=== PATIENT | male | born 1940 | race Caucasian/White ===

== ENCOUNTER → 2025-02-23 09:44 | Outpatient (REF) | payer MEDICARE, OTHER, SELFPAY | LOC: RCS 09:44 | PROVIDERS: ATTENDING PHYSICIAN Nurse Practitioner; FAMILY PHYSICIAN Family Medicine | DX: I35.0 Nonrheumatic aortic (valve) stenosis (principal); I48.21 Permanent atrial fibrillation; E78.00 Pure hypercholesterolemia, unspecified; I45.10 Unspecified right bundle-branch block; R07.89 Other chest pain | CPT/HCPCS: 93306 ==

== ENCOUNTER 2025-03-05 07:47 | Day surgery (SDC) | payer MEDICARE, OTHER, SELFPAY ==
[2025-03-05] VITALS (18 sets, daily range): BP systolic 110–160; BP diastolic 70–95; BMI 29.5
[2025-03-05] MEDS: NSS 288 ML IV (08:45)
--- NOTE | 2025-03-05 10:39 | ITS.CL.CATH ---
Addendum entered and electronically signed by Michael Neri DO 03/05/25 17:53:
Resident Physicians Duglas Anderson M.D. and Sari Lugo M.D. were present and assisted during the procedure. I was present for and performed all of the critical portions of the procedure.
Original Note:
Copying Machine Repairer - Catheterization
Cardiac Catheterization
Procedure Report:
CARDIAC CATHETERIZATION REPORT
Date of Procedure: 03/05/2025
Referring: Kevin Ritter M.D., Ph.D.
Indication: Chest pressure, at least moderate aortic valve stenosis.
PROCEDURE:
1. Right heart catheterization.
2. Coronary angiography.
3. Left heart catheterization.
4. Aortic valve interrogation.
A total of 28 minutes of procedural/moderate sedation was utilized. An independent medical videographer was present to assist with and help manage the patient's level of consciousness and physiologic status.
ACCESS:
1. 6 [place] right radial artery using a modified Seldinger technique.
2. 5 [place]e right antecubital vein using a previously placed IV.
CATHETERS:
1. 5 [place] balloon wedge.
2. 5 [place] JL 3.5.
3. 5 [place] JR4.
4. 6 [place] dual-lumen David pigtail catheter.
HEMODYNAMIC DATA
Weight (kg): 95.7
AO (s/d/x, mmHg): 128/78/98
LV (s/x, mmHg): 153/20
PCWP (a/v/x, mmHg): 21/34/20
PA (s/d/x, mmHg): 47/21/30
RV (s/x, mmHg): 47/10
RA (a/v/x, mmHg): 06/02/
SVC SvO2 (%): 71.0
IVC SvO2 (%): Not obtained.
RA SvO2 (%): Not obtained.
RV SvO2 (%): Not obtained.
PA SvO2 (%): 73.2
SaO2 (%): 96.4
Hbg (g/dL): 14.6
KAYCEE
CO (L/min): 5.85
CI (L/min/m2): 2.71
Thermodilution
CO (L/min): Not performed.
CI (L/min/m2): Not performed.
TPG (mmHg): 10
PVR (Bragg Units): 1.71
SVR (dynes*seconds*cm^-5): 1203
AVO2 Diff (Volume %): 4.61
AV gradient (x, mmHg): 31.4
AV area (cm2): 1.06
MV gradient (x, mmHg): Not obtained.
MV area (cm2): Not obtained.
LEFT VENTRICULOGRAPHY: Not performed.
AORTOGRAPHY: Not performed.
CORONARY ANGIOGRAPHY
Dominance: Right.
Left Main: Normal size, trifurcating vessel. There is no coronary disease.
LAD: Large size vessel giving rise to several small diagonals before wrapping around the apex. There are minor luminal irregularities in the mid vessel.
Ramus: Medium size vessel supplying the majority of the lateral wall. There is no coronary artery disease.
Circumflex: Normal size, nondominant vessel giving rise to 1 obtuse marginal before terminating as a left posterolateral branch. There is no coronary artery disease.
RCA: Normal size, dominant vessel. There is no coronary artery disease.
INTERVENTIONS
None.
Closure Device: Vascular band for the right radial artery, manual pressure for the right antecubital vein.
Radiation dose (mGy): 555.11
DAP (cm2.Gy): 41.8753
Fluoroscopy time (minutes): 11.5
CONCLUSIONS:
1. Right dominant circulation with luminal irregularities in the mid LAD.
2. Moderately elevated filling pressures (LVEDP = 20 mmHg, PCWP = 20 mmHg at 95.7 kg).
3. Mild postcapillary pulmonary hypertension (mean PA = 30 mmHg, PCWP = 20 mmHg, cardiac output = 5.5 L/min, PVR = 1.7 Bragg units), WHO group 2
4. Moderate to severe aortic valve stenosis (mean gradient equals 31.4 mmHg, JUAN = 1.06 cm�).
RECOMMENDATIONS:
1. Expectant management after cardiac catheterization via right radial/antecubital approach.
2. Limited weight bearing on the right wrist for one week.
3. Begin AVR workup including TAVR CT as the aortic valve stenosis is now moderate to severe, and will progress in the future.
4. Start furosemide 20 mg p.o. daily. BMP in 1 week given moderate elevation in filling pressures.
5. Continue primary prevention with simvastatin.
Copy to: Kevin Ritter M.D., Ph.D., Tristan Jerez D.Lalito.
Michael Neri DO, FACC, FACP
[2025-03-05] MEDS: LASIX 20 MG IV (11:35)
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
== END 2025-03-05 14:30 | disposition home or self-care (01) ==
LOC: CATH 07:47
PROVIDERS: ATTENDING PHYSICIAN Internal Medicine Cardiovascular Disease; FAMILY PHYSICIAN Family Medicine; OTHER PHYSICIAN Internal Medicine
DX: I08.3 Combined rheumatic disorders of mitral, aortic and tricuspid valves (principal); I27.20 Pulmonary hypertension, unspecified; R07.89 Other chest pain; I48.21 Permanent atrial fibrillation; E78.00 Pure hypercholesterolemia, unspecified; E03.9 Hypothyroidism, unspecified; I11.9 Hypertensive heart disease without heart failure; G62.9 Polyneuropathy, unspecified; Z79.01 Long term (current) use of anticoagulants; Z88.6 Allergy status to analgesic agent; Z87.442 Personal history of urinary calculi; Z79.899 Other long term (current) drug therapy; Z79.890 Hormone replacement therapy; Z90.49 Acquired absence of other specified parts of digestive tract; Z90.79 Acquired absence of other genital organ(s); Z90.81 Acquired absence of spleen; Z82.3 Family history of stroke; Z82.49 Family history of ischemic heart disease and other diseases of the circulatory system
CPT/HCPCS: 99152; 99153; 93460; C1769; C1894; Q9967

== ENCOUNTER → 2025-03-16 09:22 | Outpatient (REF) | payer MEDICARE, OTHER, SELFPAY | LOC: RAD 09:22 | PROVIDERS: ATTENDING PHYSICIAN Nurse Practitioner Adult Health; FAMILY PHYSICIAN Family Medicine | DX: I35.0 Nonrheumatic aortic (valve) stenosis (principal) | CPT/HCPCS: 74174; 75572; Q9967 ==